=== PATIENT | female | born 2000 | race Caucasian/White ===

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

== ENCOUNTER 2021-08-13 20:05 | Emergency (ER) | payer MEDICAID, SELFPAY ==
[2021-08-13 20:06] VITALS: BP 125/71; PULSE 107; RESP 14; TEMP 36.6; O2SAT 97; BMI 21.9
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
[2021-08-13 21:33] VITALS: BP 114/76; PULSE 80; RESP 14; TEMP 36.9; O2SAT 98
== END 2021-08-13 21:34 | disposition home or self-care (01) ==
PROVIDERS: Emergency Provider Emergency Medicine; PCP Family Medicine; Visit Provider Emergency Medicine
DX: M54.2 Cervicalgia (principal); V28.5XXA Motorcycle passenger injured in noncollision transport accident in traffic accident, initial encounter
CPT/HCPCS: 70450; 72125; 99282

== ENCOUNTER 2021-09-03 20:26 | Emergency (ER) | payer MEDICAID, SELFPAY ==
[2021-09-03 20:27] VITALS: BP 130/66; PULSE 100; RESP 16; TEMP 37; O2SAT 99; BMI 21.9
--- NOTE | 2021-09-03 21:12 | CT_ITS ---
We are attempting to reach an attending provider to discuss findings. An addendum with communication details will be sent when the communication is complete. STUDY: CT ABDOMEN AND PELVIS WITH CONTRAST REASON FOR EXAM: Female, 21 years old. RLQ pain -- IV PO Contrast RADIATION DOSAGE (If Supplied By Facility): CTDIvol = ( 11.37 ) mGy, DLP = ( 328.27 ) mGycm TECHNIQUE: Transaxial images were obtained from the dome of the diaphragm to the symphysis pubis with oral contrast. Oral and amp; IV Gastrografin and amp; 100mL Isovue-300 was administered. Sagittal and coronal images were reconstructed. Individualized dose optimization techniques were used for this CT. COMPARISON: None. FINDINGS: The visualized lung bases are unremarkable. The visualized portions of the heart are within normal limits. Normal liver. Normal gallbladder and extrahepatic biliary system. Normal spleen. Normal pancreas. Normal bilateral adrenal glands. Normal right kidney. Normal left kidney. Normal visualized stomach. Normal small intestine. Enteric contrast reaches the distal ileum. There fecal contents in the terminal ileum. Copious stool throughout the large bowel with inspissated stool in the rectum. Small amount of fluid about the cecum. The appendix is visualized and appears normal. Normal abdominal aorta. Normal inferior vena cava. Normal retroperitoneum. Normal urinary bladder. Normal visualized uterus. The right ovary measures up to 4.7 cm in maximum dimension. Normal abdominal wall. Normal thoracolumbar vertebral alignment. CT/Abdomen/Pelvis WITH Contrast IMPRESSION: 1. Mildly enlarged right ovary and a small amount of fluid about the nearby cecum raise suspicion for ovarian torsion. Correlate with pelvic ultrasound. 2. Constipation. Electronically Signed: Bal Anguiano MD at 23:40 EDT ,
--- NOTE | 2021-09-03 21:13 | EX.ED.DYSGE1 ---
HPI History of Present Illness Chief Complaint: Abd Pain Informant: patient Onset/Context/Timing Onset: Today Context: Gradual Onset Current Severity: Mild Maximum Severity: Moderate Narrative Narrative: Patient present secondary to right lower quadrant pain. Patient states her symptoms started today to been gradual in onset. Pain has been focal in the right lower quadrant. She does believe the pain got slightly worse after she ate this evening. No vomiting or diarrhea. No urinary symptoms. Last menstrual cycle was 1 month ago. No history of ovarian cysts. PFSH PFSH Medical History Menorrhagia with irregular cycle Home Medications amoxicillin 875 mg-potassium clavulanate 125 mg tablet 875 mg PO Q12H #20 tabs 04/11/19 [Rx Last Taken Unknown] dexamethasone 4 mg tablet 4 mg PO BIDCM #6 tabs 04/11/19 [Rx Last Taken Unknown] naproxen 500 mg tablet (Naprosyn) 500 mg PO BID #20 tabs 08/13/21 [Rx Last Taken Unknown] tizanidine 2 mg tablet 2 mg PO Q8H PRN muscle spasticity #7 tabs 08/13/21 [Rx Last Taken Unknown] Allergy/AdvReac Type Severity Reaction Status Date / Time DTAP Allergy Other Uncoded 09/03/21 20:28 Family History Mother Breast cancer BRCA gene mutation positive Grandfather BRCA gene mutation positive Surgical History History of bunionectomy of both great toes Social History Smoking Status: Never smoker alcohol intake: never substance use type: does not use caffeine: No what type of physical activity do you participate in: walking seatbelt use: always additional social history: Muna HS ROS ROS ED Constitutional Constitutional ED: Denies chills or fever(s) Eyes Eyes: Denies change in vision or discharge from eye(s) ENT ENT ED: Denies discharge from eye(s), rhinorrhea or sore throat Cardiovascular Cardiovascular: Denies chest pain or palpitations Respiratory/Chest Respiratory/Chest: Denies cough or dyspnea Gastrointestinal Gastrointestinal: Reports abdominal pain; Denies diarrhea, nausea or vomiting Genitourinary Genitourinary ED: Denies difficulty urinating or dysuria Musculoskeletal Musculoskeletal: Denies back pain or extremity pain Integumentary Denies Abrasions or rash Neurologic Neurologic: Denies headache(s) or weakness Psychiatric Psychiatric: Denies anxiety or depression Allergic/Immunologic Allergic/Immunologic ED: Denies lip swelling or urticaria EXAM Physical Exam Const Vital Signs: 09/03/21 20:27 Temperature 98.6 F Temperature Source Temporal Pulse Rate 100 Respiratory Rate 16 Blood Pressure 130/66 H Blood Pressure Mean 87 Pulse Ox 99 Oxygen Delivery Method Room Air Positive well nourished and well developed General Appearance ED: well developed HEENT Reports normocephalic and head/scalp atraumatic Eyes PERRL and EOMs intact bilaterally Neck supple Chest Wall inspection of chest normal and palpation of chest normal Resp normal respiratory effort and clear to auscultation bilaterally Cardio regular rate and regular rhythm GI GI Narrative: Mild tenderness right lower quadrant. No guarding or rebound. Auscultation: normoactive bowel sounds Palpation: soft Back/Spine no CVA tenderness Extremity normal to inspection Neuro oriented x3 and no sensory deficits noted Sensorium / Orientation: alert Motor Exam: strength 5/5 throughout Psych mental status grossly normal Skin no rashes or lesions noted MDM MDM MDM Narrative Medical decision making narrative: Declined anything for pain or nausea. Lab work obtained along with urinalysis. CT scan of the abdomen pelvis with p.o. and IV contrast obtained. Lab Data Attestation: I reviewed the patient's lab results. Labs: Laboratory Results - last 24 hr 09/03/21 09/03/21 09/03/21 21:15 21:15 21:15 WBC 7.8 RBC 3.87 L Hgb 11.8 L Hct 36.0 L MCV 93.0 MCH 30.5 MCHC 32.8 RDW Std Deviation 42.0 RDW Coeff of Vaibhav 12.3 Plt Count 208 MPV 11.5 Immature Gran % (Auto) 0.300 Neut % (Auto) 66.5 Lymph % (Auto) 24.6 [place] % (Auto) 7.7 Eos % (Auto) 0.6 Baso % (Auto) 0.3 Absolute Neuts (auto) 5.2 Absolute Lymphs (auto) 1.92 Nucleated RBC % 0 Sodium 142 Potassium 3.9 Chloride 110 H Carbon Dioxide 28.0 Anion Gap 4 L BUN 18 Creatinine 0.85 Estim Creat Clear Calc 83.50 Est GFR (MDRD) Af Amer 109 Est GFR (MDRD) Non-Af 90 BUN/Creatinine Ratio 21.1 H Glucose 90 Calcium 8.7 Serum , Qual NEGATIVE Urine Color Urine Clarity Urine pH Ur Specific [place] Urine Protein Urine Glucose (UA) Urine Ketones Urine Occult Blood Urine Nitrite Urine Bilirubin Urine Urobilinogen Ur Leukocyte Esterase Urine RBC Urine WBC Ur Squamous Epith Cells Amorphous Sediment Urine Bacteria Urine Mucus 09/03/21 22:05 WBC RBC Hgb Hct MCV MCH MCHC RDW Std Deviation RDW Coeff of Vaibhav Plt Count MPV Immature Gran % (Auto) Neut % (Auto) Lymph % (Auto) Gordon % (Auto) Eos % (Auto) Baso % (Auto) Absolute Neuts (auto) Absolute Lymphs (auto) Nucleated RBC % Sodium Potassium Chloride Carbon Dioxide Anion Gap BUN Creatinine Estim Creat Clear Calc Est GFR (MDRD) Af Amer Est GFR (MDRD) Non-Af BUN/Creatinine Ratio Glucose Calcium Serum , Qual Urine Color Yellow Urine Clarity Cloudy Urine pH 8.0 Ur Specific [place] 1.015 Urine Protein Negative Urine Glucose (UA) Normal Urine Ketones Negative Urine Occult Blood Negative Urine Nitrite Negative Urine Bilirubin Negative Urine Urobilinogen Normal Ur Leukocyte Esterase 25 H Urine RBC 0 SEEN Urine WBC 0 SEEN Ur Squamous Epith Cells 0-5 SEEN Amorphous Sediment 3+ Urine Bacteria 1+ Urine Mucus 0 SEEN Radiography Diagnostic Testing: Clinical Impression(s) from Imaging Studies Abdomen/Pelvis CT 09/03/21 21:12 IMPRESSION: 1. Mildly enlarged right ovary and a small amount of fluid about the nearby cecum raise suspicion for ovarian torsion. Correlate with pelvic ultrasound. 2. Constipation. Electronically Signed: Bal Anguiano MD at 23:40 EDT , Treatment and Re-Evaluation Narrative: Lab work is unremarkable and urinalysis reveals no acute infection. test is negative. CT scan reveals normal appendix with signs of constipation. Her right ovary is slightly enlarged with a small amount of surrounding fluid concerning for possible ovarian torsion. After drinking the p.o. contrast patient did ask for a small amount of pain medication to help with her discomfort. She was given 2 mg of morphine and 4 mg of Zofran. On repeat evaluation she is resting more comfortably. Pelvic ultrasound will be obtained for further evaluation and patient's [employer] will be consulted. This will be signed out to oncoming physician. Discharge Plan Triage Chief Complaint: Abd Pain ED Provider: Lolis George Dx/Rx/DC Orders Prescriptions: No Action amoxicillin-pot clavulanate 875 MG tablet 875 mg PO Q12H Qty: 20 0RF dexamethasone 4 MG tablet 4 mg PO BIDCM Qty: 6 0RF tizanidine 2 mg tablet 2 mg PO Q8H PRN (Reason: muscle spasticity) Qty: 7 0RF naproxen [Naprosyn] 500 mg tablet 500 mg PO BID Qty: 20 0RF Primary Care Provider: Raissa Fonseca Referrals: Raissa Fonseca DO [Primary Care Provider] -
[2021-09-03 21:26] LABS: Absolute Lymphocyte Count 1.92 X10^3/uL (0.83-4.51); Absolute Neutrophil Count 5.2 X10^3/uL (2.0-7.7); Basophil# 0.02 X10^3/uL; Basophil% 0.3 % (0-1); Eosinophil# 0.05 X10^3/uL; Eosinophils% 0.6 % (0-5); Hemoglobin 11.8 g/dL (12.0-15.0); Lymphocyte # 1.92 X10^3/ul (0.83-4.51); Lymphocyte % 24.6 % (19-41); Mean Corp Hgb Conc 32.8 g/dL (32-36); Mean Corpuscular Hgb 30.5 pg (27.0-32.0); Mean Platelet Vol. 11.5 fl (6.2-12.0); Monocyte% 7.7 % (0-10); NRBC Flagged by Analyzer 0 % (0-5); Neutrophil # 5.21 X10^3/uL (2.7-7.7); Neutrophil % 66.5 % (47-70); Platelet Count 208 K/mm3 (150-450); RBC Distribution Width CV 12.3 % (11.6-14.6); Red Blood Count 3.87 M/mm3 (4.2-5.4); White Blood Count 7.8 K/mm3 (4.4-11.0)
[2021-09-03 21:41] LABS: Anion Gap 4 (5-15); BUN 18 mg/dL (7-18); BUN/Creat Ratio 21.1 RATIO (10-20); Calcium,Total 8.7 mg/dL (8.5-10.1); Chloride 110 mmol/L (98-107); Creatinine, Serum 0.85 mg/dL (0.55-1.02); EST Glomerular Filtration Rate 90 mL/min (>60); Est Glom Filt Rate - Afr Amer 109 mL/min (>60); Glucose 90 mg/dL (74-106); Potassium 3.9 mmol/L (3.5-5.1); Sodium Level 142 mmol/L (136-145)
[2021-09-03 22:03] LABS: Internal QC Validated? YES +Cl - CLEAR BKGD; Pregnancy, Serum, hCG Quali. NEGATIVE Negative
[2021-09-03] MEDS: Ondansetron 4 MG/2 ML Vial IV (22:17)
[2021-09-03] MEDS: Morphine 2 MG/ML Syringe IV (22:18)
[2021-09-03] MEDS: 0.9% Normal Saline 1,000 ML 150 ML IV (22:19)
[2021-09-03 22:30] LABS: Mucous, Urine 0 SEEN /hpf (<or=2+); Red Blood Cells-Urine 0 SEEN /hpf (0-5); White Blood Cells 0 SEEN /hpf (0-5)
[2021-09-03 23:16] LABS: Color, Urine Yellow (Yellow); Glucose, Dipstick Normal (Normal); Ketone-Dipstick Negative (Negative); Leukocyte Esterase-Dipstick 25 /ul (Negative); Nitrite-Dipstick Negative (Negative); Occult Blood-Urine Negative /ul (Negative); Protein-Dipstick Negative (Negative); Specific Gravity, Urine 1.015 (1.002-1.030); Urine Bilirubin Dipstick Negative (Negative); Urine Clarity Cloudy (Clear); Urine Urobilinogen Normal (Normal)
[2021-09-03 23:42] LABS: Amorphous Sediment 3+; Bacteria 1+ /hpf (None Seen); Squamous Epithelial Cells - UA 0-5 SEEN /hpf (5-10)
--- NOTE | 2021-09-03 23:44 | US_ITS ---
STUDY: ULTRASOUND OF THE FEMALE PELVIS - COMPLETE REASON FOR EXAM: Female, 21 years old. Pelvic sonal LMP: 08/06/2021 TECHNIQUE: Transabdominal TECHNICAL QUALITY: Adequate. COMPARISON: None. FINDINGS: The uterus is anteverted and is in a midline position. The uterus measures 8.2 x 4.5 x 2.5 cm. There is a Nabothian cyst of the cervix. The endometrium measures 7.9 mm in thickness, and is heterogeneous (striated). There is no demonstrated endometrial mass. There is no demonstrated myometrial mass. I.U.D. - The patient does not have an I.U.D. The right ovary measures 4.5 x 3.2 x 2.7 cm. There are multiple follicles of the right ovary without a dominant cyst. There is no visualized right adnexal mass or complex lesion. There is normal arterial and normal venous vascularity. The left ovary measures 3.6 x 3.1 x 2.2 cm. There are multiple follicles of the left ovary without a dominant cyst. There is no visualized left adnexal mass or complex lesion. There is normal arterial and normal venous vascularity. There is minimal fluid in the cul-de-sac. The pre void volume of the bladder was 238 ml. Polycystic ovary disease: No. Septated small fluid collection in the right lower quadrant. US/Pelvic (Non ) IMPRESSION: No finding of ovarian torsion or other acute abnormal gynecologic finding. Small septated fluid collection the right lower quadrant corresponds to pericecal fluid without surrounding inflammatory change on recent CT. Clinical significance is uncertain. Electronically Signed: Bal Anguiano MD at 1:08 EDT ,
--- NOTE | 2021-09-04 01:35 | ED.VIS.GI ---
HPI HPI - GI History of Present Illness Chief Complaint: Abd Pain Detail of Chief Complaint: Abdominal pain PFSH PFSH Medical History (Updated 09/04/21 @ 01:[address] Ryan Mims DO) Menorrhagia with irregular cycle Home Medications amoxicillin 875 mg-potassium clavulanate 125 mg tablet 875 mg PO Q12H #20 tabs 04/11/19 [Rx Last Taken Unknown] dexamethasone 4 mg tablet 4 mg PO BIDCM #6 tabs 04/11/19 [Rx Last Taken Unknown] naproxen 500 mg tablet (Naprosyn) 500 mg PO BID #20 tabs 08/13/21 [Rx Last Taken Unknown] tizanidine 2 mg tablet 2 mg PO Q8H PRN muscle spasticity #7 tabs 08/13/21 [Rx Last Taken Unknown] Allergy/AdvReac Type Severity Reaction Status Date / Time DTAP Allergy Other Uncoded 09/03/21 20:28 Family History Mother Breast cancer BRCA gene mutation positive Grandfather BRCA gene mutation positive Surgical History History of bunionectomy of both great toes Social History Smoking Status: Never smoker alcohol intake: never substance use type: does not use caffeine: No what type of physical activity do you participate in: walking seatbelt use: always additional social history: [place] [facility] EXAM Physical Exam Const Vital Signs: 09/03/21 20:27 Temperature 98.6 F Temperature Source Temporal Pulse Rate 100 Respiratory Rate 16 Blood Pressure 130/66 H Blood Pressure Mean 87 Pulse Ox 99 Oxygen Delivery Method Room Air [facility] Lab Data Labs: Laboratory Results - last 24 hr 09/03/21 09/03/21 09/03/21 21:15 21:15 21:15 WBC 7.8 RBC 3.87 L Hgb 11.8 L Hct 36.0 L MCV 93.0 MCH 30.5 MCHC 32.8 RDW Std Deviation 42.0 RDW Coeff of Vaibhav 12.3 Plt Count 208 MPV 11.5 Immature Gran % (Auto) 0.300 Neut % (Auto) 66.5 Lymph % (Auto) 24.6 Woodruff % (Auto) 7.7 Eos % (Auto) 0.6 Baso % (Auto) 0.3 Absolute Neuts (auto) 5.2 Absolute Lymphs (auto) 1.92 Nucleated RBC % 0 Sodium 142 Potassium 3.9 Chloride 110 H Carbon Dioxide 28.0 Anion Gap 4 L BUN 18 Creatinine 0.85 Estim Creat Clear Calc 83.50 Est GFR (MDRD) Af Amer 109 Est GFR (MDRD) Non-Af 90 BUN/Creatinine Ratio 21.1 H Glucose 90 Calcium 8.7 Serum , Qual NEGATIVE Urine Color Urine Clarity Urine pH Ur Specific Larsen Urine Protein Urine Glucose (UA) Urine Ketones Urine Occult Blood Urine Nitrite Urine Bilirubin Urine Urobilinogen Ur Leukocyte Esterase Urine RBC Urine WBC Ur Squamous Epith Cells Amorphous Sediment Urine Bacteria Urine Mucus 09/03/21 22:05 WBC RBC Hgb Hct MCV MCH MCHC RDW Std Deviation RDW Coeff of Vaibhav Plt Count MPV Immature Gran % (Auto) Neut % (Auto) Lymph % (Auto) Woodruff % (Auto) Eos % (Auto) Baso % (Auto) Absolute Neuts (auto) Absolute Lymphs (auto) Nucleated RBC % Sodium Potassium Chloride Carbon Dioxide Anion Gap BUN Creatinine Estim Creat Clear Calc Est GFR (MDRD) Af Amer Est GFR (MDRD) Non-Af BUN/Creatinine Ratio Glucose Calcium Serum , Qual Urine Color Yellow Urine Clarity Cloudy Urine pH 8.0 Ur Specific Larsen 1.015 Urine Protein Negative Urine Glucose (UA) Normal Urine Ketones Negative Urine Occult Blood Negative Urine Nitrite Negative Urine Bilirubin Negative Urine Urobilinogen Normal Ur Leukocyte Esterase 25 H Urine RBC 0 SEEN Urine WBC 0 SEEN Ur Squamous Epith Cells 0-5 SEEN Amorphous Sediment 3+ Urine Bacteria 1+ Urine Mucus 0 SEEN Radiography Diagnostic Testing: Clinical Impression(s) from Imaging Studies Abdomen/Pelvis CT 09/03/21 21:12 IMPRESSION: 1. Mildly enlarged right ovary and a small amount of fluid about the nearby cecum raise suspicion for ovarian torsion. Correlate with pelvic ultrasound. 2. Constipation. Electronically Signed: Bal Anguiano MD at 23:40 EDT , ADDENDUM: 09/04/21 0000 IMPRESSION: 1. Mildly enlarged right ovary and a small amount of fluid about the nearby cecum raise suspicion for ovarian torsion. Correlate with pelvic ultrasound. 2. Constipation. N.B. : The above Results were Read Back by Bal Anguiano MD to Lolis George MD, and understanding confirmed on 09/03/2021 23:52:52 (ET). Electronically Signed: Bal Anguiano MD at 23:40 EDT , Pelvis Ultrasound 09/03/21 23:44 IMPRESSION: No finding of ovarian torsion or other acute abnormal gynecologic finding. Small septated fluid collection the right lower quadrant corresponds to pericecal fluid without surrounding inflammatory change on recent CT. Clinical significance is uncertain. Electronically Signed: Bal Anguiano MD at 1:08 EDT , Discharge Plan Triage Chief Complaint: Abd Pain ED Provider: Lolis George Dx/Rx/DC Orders Clinical Impression: Abdominal pain Instructions: ED Abdominal Pain Unkn Cause Fem Prescriptions: No Action amoxicillin-pot clavulanate 875 MG tablet 875 mg PO Q12H Qty: 20 0RF dexamethasone 4 MG tablet 4 mg PO BIDCM Qty: 6 0RF tizanidine 2 mg tablet 2 mg PO Q8H PRN (Reason: muscle spasticity) Qty: 7 0RF naproxen [Naprosyn] 500 mg tablet 500 mg PO BID Qty: 20 0RF Primary Care Provider: Raissa Fonseca Referrals: Raissa Fonseca DO [Primary Care Provider] - Nargis Holloway MD [STAFF PHYSICIAN] - 5-7 Days Disposition Disposition: Home, Self Care
[2021-09-04 01:43] VITALS: BP 112/82; PULSE 75; RESP 16; O2SAT 99
== END 2021-09-04 01:44 | disposition home or self-care (01) ==
PROVIDERS: Emergency Provider Emergency Medicine; PCP Family Medicine; Visit Provider Emergency Medicine
DX: R10.9 Unspecified abdominal pain (principal)
CPT/HCPCS: 74177; 76856; 80048; 81001; 84703; 85025; 93976; 99282; Q9967; A4216; J2405